=== PATIENT | female | born 1985 ===

== ENCOUNTER 2019-02-15 05:49 | Day surgery (SDC) | payer OTHER ==
[2015-03-19 20:40] VITALS: BMI 32.3
[2019-02-15] MEDS ORDERED: Midazolam 2 MG/2 ML VIAL ONE (07:28)
[2019-02-15] MEDS ORDERED: Propofol 10 mg/ml Inj (20 ML) ONE (07:28)
[2019-02-15] MEDS ORDERED: Bupivacaine 0.25% 20 ML INJ IJ ONE (07:52)
[2019-02-15] MEDS ORDERED: Lidocaine/Epinephrine 1% 1:100000 10 ML IJ ONE ×2 (07:52→07:53)
[2019-02-15] MEDS ORDERED: ceFAZolin 1 gm in NS 2 GM/200 ML BAG IVPB ONE (07:52)
[2019-02-15] MEDS ORDERED: Neostigmine 1:1000 (1 mg/ml) Inj ONE (09:31)
[2019-02-15] MEDS ORDERED: Morphine 4 MG/ML VIAL ONE (09:44)
[2019-02-15] MEDS: HYDROmorphone 0.5 mg/0.5 ml ISec IVP PRN ×2 (10:19→11:11)
[2019-02-15 11:46] VITALS: PULSE 80; RESP 15; TEMP 97.3; O2SAT 98
[2019-02-15 12:49] VITALS: BP 123/69
--- NOTE | 2019-02-15 23:22 | OP ---
PROCEDURE DATE: 02/15/2019 PREOPERATIVE DIAGNOSES: Multiparity, desires permanent sterilization, and pelvic pain. POSTOPERATIVE DIAGNOSES: Multiparity, desires permanent sterilization, and pelvic pain with right hydrosalpinx. PROCEDURE PERFORMED: Robotic bilateral salpingectomy, removal of right hydrosalpinx. SURGEON: Lucretia Hadlye MD PROJECT SUPERINTENDENT: KALIA Alvarez OPERATIVE FINDING: Anteverted uterus at 8-10 weeks in size, enlarged right dilated fallopian tube, normal-appearing left fallopian tube, normal-appearing uterus and ovaries bilaterally. Brook Cardona was the medical surgical tech, present for the entire case, especially in gaining entry laparoscopically, all laparoscopic ports, docking the robot, inserting all instruments, helping to retract and uterine manipulation in addition to removing the specimens and closing all layers, and was present for the entire case. ESTIMATED BLOOD LOSS: 5 mL. BLOOD PRODUCTS: None. COMPLICATIONS: None. SPECIMENS: Right and left fallopian tube. DESCRIPTION OF PROCEDURE: The patient was taken to the operating room where she was given general anesthesia. Once it was found to be adequate, she was placed on the operating table in dorsal supine position with legs supported using stirrups in usual fashion. The bimanual exam was performed with the abovementioned findings. The patient was given preoperative prophylactic antibiotics. Following this, a Daniels catheter was then inserted in the urethra to drain the bladder. A Salas retractor was placed in the anterior and posterior fornix of the vagina. The cervix was adequately visualized. A single-tooth tenaculum was placed in the anterior lip of the cervix. The uterus was sounded to 8 cm. Following this, the cervix was sequentially dilated to allow for the introduction of the HUMI uterine manipulator, which was insufflated with 8 mL of air. The HUMI uterine manipulator was found to be in place. . Following this, the legs were then repositioned. The surgeon then re-gloved and attention was then turned to the abdomen. The patient was given local anesthetic supraumbilically with 1% lidocaine with epinephrine in right and left lower abdomen. Following this, skin incision was made with the scalpel. Two S-retractors were in place. The fascia was then grasped and elevated with Gianluca clamp, which was carefully incised with the scalpel. There was no underlying . The trocar was then inserted under direct visualization. The laparoscope was then inserted. There was no injury noted. Bowel noted to be intact. There was good hemostasis noted. Following this, both the right and left 8-mm incisions were made and the laparoscopic port was then inserted under direct visualization. Following that, the robotic da Nick device was then appropriately docked in the appropriate manner. The endoscope was then appropriately attached to the appropriate port site. Targeting was completed. The other arms were then appropriately docked. A ProGrasp forceps was placed in arm 1, the camera in 2 and a bipolar device in arm 3. The uterus was then appropriately elevated. There was close inspection of the abdomen and pelvic cavity in addition to the upper abdomen, which all appeared grossly normal. The patient was then placed in Trendelenburg position. Following this, the bowel was then moved out of the operative site. The uterus was then anteverted and positioned and the fallopian tube was noted to be visualized. The right fallopian tube appeared to be dilated and adherent to the ovary, which was grasped using the ProGrasp and using the bipolar device appropriate. Lysis of adhesions were made to distal end of the fimbriated fallopian tube to ovary were carefully dissected. Using the bipolar device along the mesosalpinx and close proximity of fallopian tube and close proximity to the cornua. Following this, the left fallopian tube, which appeared grossly normal was elevated with ProGrasp forceps and from the distal fimbriated end was appropriately coagulated and carefully dissected using the bipolar device. Following this, the ProGrasp forceps was removed and monopolar scissor was then inserted and appropriate cautery was additionally performed and resection of the fallopian tube from the mesosalpinx was performed on both side. There was good hemostasis noted on either side. The specimen was removed through a specimen bag. Following this, there was good hemostasis at the operative site. There was good inspection. The laparoscopic ports were then removed under direct visualization and there was good hemostasis noted. All other ports were removed. The fascial incision at the umbilical site was closed using two S-retractors. The fascia was tented up and the fascia was reapproximated and closed in the [id number] fashion at the umbilicus. The fascia was noted to be closed. The remaining skin ports were all closed with 4-0 Monocryl in a running subcuticular fashion. The Daniels catheter and the HUMI uterine manipulator were removed. There was good hemostasis noted. At the end of the procedure, all needle, sponge, and instrument counts were noted to be correct x2. The patient tolerated the procedure well and was transferred to the recovery room in stable condition. Lucretia Hadley MD
== END 2019-02-15 13:19 | disposition home or self-care (01) ==
LOC: C.SDS 05:49
PROVIDERS: ATTEND Obstetrics & Gynecology
DX: Z30.2 Encounter for sterilization (principal); R10.2 Pelvic and perineal pain
CPT/HCPCS: 36415; 58661; 86850; 86900; 88302; J0690; J1170; J2250; J2270; J2405; J2704; J2710; J3010